=== PATIENT | female | born 1990 | race Two or more races ===

== ENCOUNTER 2017-03-11 10:36 | Emergency (ER) | payer OTHER ==
[~2017-03-11] VITALS: Ht 165.1 cm; Wt 70.7 kg
[2017-03-11 12:12] LABS: BLOOD UREA NITROGEN 5 mg/dL (7-18)
[2017-03-11 14:38] VITALS: BP 131/74
== END 2017-03-11 14:40 | disposition home or self-care (01) ==
LOC: ED 12:59
DX: O9A.212 Injury, poisoning and certain other consequences of external causes complicating pregnancy, second trimester (principal); Z3A.18 18 weeks gestation of pregnancy; S29.012A Strain of muscle and tendon of back wall of thorax, initial encounter; X58.XXXA Exposure to other specified factors, initial encounter; Y93.89 Activity, other specified; Y92.89 Other specified places as the place of occurrence of the external cause; Y99.8 Other external cause status
CPT/HCPCS: 36415; 80048; 81001; 82040; 85025; 87086; 99284

== ENCOUNTER 2017-06-30 22:46 | Emergency (ER) | payer OTHER ==
[~2017-06-30] VITALS: Ht 165.1 cm; Wt 73.0 kg
[2017-06-30 23:47] LABS: HEMATOCRIT 31.9 % (34.6-47.8); HEMOGLOBIN 10.5 g/dL (11.7-16.4); WHITE BLOOD COUNT 13.4 x10^3/uL (3.4-10)
[2017-06-30 23:57] LABS: BLOOD UREA NITROGEN 4 mg/dL (7-18)
[2017-07-01 00:04] VITALS: BP 132/79
[2017-07-01 00:07] LABS: IS PT STATUS REG ER OR PRE ER? YES
[2017-07-01] MEDS ORDERED: POTASSIUM CHLORIDE 20 MEQ TAB.ER.PRT PO ONE (00:30)
[2017-07-01] MEDS ORDERED: POTASSIUM CHLORIDE 20 MEQ TAB.ER.PRT ONE (00:42)
== END 2017-07-01 01:10 | disposition home or self-care (01) ==
LOC: ED 07-01 01:05
DX: O26.893 Other specified pregnancy related conditions, third trimester (principal); R00.2 Palpitations; E87.6 Hypokalemia; Z3A.34 34 weeks gestation of pregnancy
CPT/HCPCS: 36415; 80048; 82040; 83735; 84436; 84443; 84484; 85025; 93005; 99285

== ENCOUNTER 2017-07-01 01:47 | Outpatient (CLI) | payer OTHER ==
[~2017-07-01] VITALS: Ht 165.1 cm; Wt 72.0 kg
[2017-07-01 01:52] VITALS: BP 122/80
== END 2017-07-01 02:50 | disposition home or self-care (01) ==
LOC: LDOP 01:47
PROVIDERS: ATTEND Obstetrics & Gynecology
DX: O26.893 Other specified pregnancy related conditions, third trimester (principal); O26.853 Spotting complicating pregnancy, third trimester; R07.9 Chest pain, unspecified; R20.0 Anesthesia of skin; Z3A.34 34 weeks gestation of pregnancy
CPT/HCPCS: 59025; 99201; G0463

== ENCOUNTER 2017-07-01 17:26 | Outpatient (CLI) | payer OTHER ==
[~2017-07-01] VITALS: Ht 165.1 cm; Wt 72.7 kg
[2017-07-01 17:50] VITALS: BP 129/73
== END 2017-07-01 19:21 | disposition home or self-care (01) ==
LOC: LDOP 17:26
PROVIDERS: ATTEND Obstetrics & Gynecology
DX: O42.913 Preterm premature rupture of membranes, unspecified as to length of time between rupture and onset of labor, third trimester (principal); Z3A.33 33 weeks gestation of pregnancy
CPT/HCPCS: 59025; 76815; 81001; 87077; 87086; 87106; 87210; 87808; 89060; 99211; G0463; Q0114

== ENCOUNTER 2017-07-11 14:18 | Outpatient (CLI) | payer OTHER ==
[~2017-07-11] VITALS: Ht 165.1 cm; Wt 72.7 kg
[2017-07-11 15:00] VITALS: BP 123/84
[2017-07-11 15:20] LABS: DAU SCREEN DISCLAIMER
[2017-07-11] MEDS ORDERED: PNV11TAB5 PO (15:37)
== END 2017-07-11 15:55 | disposition home or self-care (01) ==
LOC: LDOP 14:18
PROVIDERS: ATTEND Obstetrics & Gynecology
DX: O26.893 Other specified pregnancy related conditions, third trimester (principal); O21.0 Mild hyperemesis gravidarum; R20.0 Anesthesia of skin; Z3A.35 35 weeks gestation of pregnancy
CPT/HCPCS: 59025; 80307; 81001; 87086; 99211; G0463; G0479

== ENCOUNTER 2017-07-11 16:00 | Emergency (ER) | payer OTHER ==
[~2017-07-11] VITALS: Ht 165.1 cm; Wt 72.4 kg
[~2017-07-11 16:00] MED LIST: PNV11TAB5 PO
[2017-07-11] MEDS ORDERED: ACETAMINOPHEN 500 MG TABLET PO ONE (16:30)
[2017-07-11 20:40] VITALS: BP 128/85
== END 2017-07-11 20:43 | disposition home or self-care (01) ==
LOC: ED 19:46
DX: O99.353 Diseases of the nervous system complicating pregnancy, third trimester (principal); G56.03 Carpal tunnel syndrome, bilateral upper limbs; Z3A.35 35 weeks gestation of pregnancy
CPT/HCPCS: 72050; 99284